=== PATIENT | male | born 1960 | race Caucasian/White ===

== ENCOUNTER → 2024-03-13 07:26 | Outpatient (REF) | payer BC, SELFPAY | LOC: HWRAD 07:26 | PROVIDERS: ATTENDING PHYSICIAN Nurse Practitioner Adult Health; FAMILY PHYSICIAN Family Medicine | DX: R93.89 Abnormal findings on diagnostic imaging of other specified body structures (principal); Z85.118 Personal history of other malignant neoplasm of bronchus and lung | CPT/HCPCS: 71250 ==

== ENCOUNTER → 2024-05-21 07:03 | Outpatient (REF) | payer BC, SELFPAY | LOC: HWRCS 07:03 | PROVIDERS: ATTENDING PHYSICIAN Internal Medicine Cardiovascular Disease; FAMILY PHYSICIAN Family Medicine | DX: I42.8 Other cardiomyopathies (principal) | CPT/HCPCS: 93306 ==